=== PATIENT | female | born 1995 | race Two or more races ===

== ENCOUNTER 2024-03-04 09:58 | Outpatient (CLI) | payer OTHER | END 2024-03-04 09:59 | disposition home or self-care (01) | LOC: PRENATAL 09:58 | PROVIDERS: ATTEND Obstetrics & Gynecology Maternal & Fetal Medicine | DX: O36.80X0 Pregnancy with inconclusive fetal viability, not applicable or unspecified (principal); Z36.82 Encounter for antenatal screening for nuchal translucency; O24.319 Unspecified pre-existing diabetes mellitus in pregnancy, unspecified trimester; O34.10 Maternal care for benign tumor of corpus uteri, unspecified trimester; Z3A.12 12 weeks gestation of pregnancy ==